=== PATIENT | male | born 1975 | race Caucasian/White ===

== ENCOUNTER → 2018-05-19 16:28 | Outpatient (CLI) | payer OTHER, SELFPAY ==
--- NOTE | 2018-05-19 16:30 | DI.RAD.S_ITS ---
PROCEDURE: XR SHOULDER RT MIN 2V INDICATIONS: right shoulder pain TECHNIQUE: 3 views of the shoulder were acquired. COMPARISON: None. FINDINGS: Bones: No fractures or dislocations. No suspicious bony lesions. Visualized ribs appear intact. Soft tissues: No suspicious soft tissue calcifications. The visualized lung demonstrates an unremarkable appearance. IMPRESSION: Negative plain films. If there is strong clinical suspicion for internal derangement of this joint, please consider a dedicated MRI for further evaluation (assuming that there is no contraindication to MRI). Dictated by: Zander Oh M.D. on 05/19/2018 at 15:46 Approved by: Zander Oh M.D. on 05/19/2018 at 15:46
== END ==
PROVIDERS: Visit Provider Physician Assistant
DX: M25.511 Pain in right shoulder (principal)
CPT/HCPCS: 73030

== ENCOUNTER → 2018-05-26 07:39 | Outpatient (CLI) | payer OTHER, SELFPAY ==
--- NOTE | 2018-05-26 07:40 | DI.MRI.S_ITS ---
PROCEDURE: MR SHOULDER RT WO CON INDICATIONS: R shoulder pain TECHNIQUE: Noncontrast oblique coronal T2 fast spin echo with fat saturation, oblique sagittal T1 spin echo and T2 fast spin echo with fat saturation, axial T1 spin echo and T2 fast spin echo with fat saturation through the shoulder. COMPARISON: [facility], CR, XR SHOULDER RT MIN 2V, 05/19/2018, 16:30. FINDINGS: Image quality: Severely motion degraded Rotator cuff: Full-thickness tear of the supraspinatus tendon is seen, not well imaged due to motion degradation of the study however this measures approximately 1.9 cm in the transverse/longitudinal dimension on coronal image 11 series 8. Infraspinatus tendinopathy is likely present although also not well-seen due to motion artifact. The teres minor appears grossly intact. Subscapularis tendinopathy with bursal and articular surface fraying. Fatty infiltration of the supraspinatus and infraspinatus muscles although no definite atrophy is seen. Bones and bursae: No bone marrow contusions or fractures. Moderate acromioclavicular joint degeneration. The acromion demonstrates conventional anatomy, without an os acromiale. Capsule and soft tissues: Labrum not well visualized due to motion artifact however there is predominantly low signal hypertrophic appearance of the anteroinferior labrum raising possibility of chronic tear with scarring. The long head of the biceps tendon demonstrates normal location and morphology. The rotator interval appears normal, without fibrosis. The coracohumeral ligament is normal in thickness. IMPRESSION: Full-thickness tear of the supraspinatus tendon. Infraspinatus and subscapularis tendinopathy. Low-grade bursal and articular surface fraying of the subscapularis tendon. Probable chronic anteroinferior labral tear with scarring/hypertrophy. Dictated by: Rene Crane M.D. on 05/26/2018 at 9:57 Approved by: Rene Crane M.D. on 05/26/2018 at 10:09
== END ==
PROVIDERS: Visit Provider Physician Assistant
DX: M25.511 Pain in right shoulder (principal); G89.29 Other chronic pain; M75.121 Complete rotator cuff tear or rupture of right shoulder, not specified as traumatic; M67.911 Unspecified disorder of synovium and tendon, right shoulder
CPT/HCPCS: 73221

== ENCOUNTER 2018-08-20 15:15 | Outpatient (RCR) | payer OTHER, SELFPAY ==
--- NOTE | 2018-07-16 17:30 | PT.OPPOC ---
Current Diagnoses Complete rotator cuff tear or rupture of right shoulder, not specified as traumatic (07/16/18) Provider Visit Care Team Role Provider Type Walter Laboy MD Primary Care Provider Physician Specialty: Internal Medicine Address: [address] [place] [address], [address] Email: Benny Beth MD Attending Provider Physician Specialty: Orthopedic Surgery Address: [address] [place] [address], [id number] Email: [email or web address] Plan Of Care PT-OP-T Assessment and Plan Start: 07/16/18 17:18 Freq: Status: Active Protocol: Document 07/16/18 17:21 EA (Rec: 07/16/18 17:37 EA [id number]) Physical Therapy Assessment Rehab Potential Rehabilitation Potential Good Evaluation Complexity Number of Personal Factors/Comorbidities 1-2 Number of Body Systems Impaired 1-2 Clinical Presentation at Evaluation Stable Impairments Impairments Activity Tolerance Functional Activities Pain Posture ROM Soft Tissue Mobility Strength Goals Four Impairment Impaired shoulder ROM Intermediate Goal (LTG) Patient will reach functional ROM without discomfort LTG Duration 6 wks Three Impairment Apley's functional test: Unable Director Of Reservations Goal (LTG) Apleys ER/ABD C7 Appleys IR/ADD T9 LTG Duration 7 wks Two Impairment Quick Dash score of 56 Director Of Reservations Goal (LTG) Patient will have Quick Dash score of les tna 30 LTG Duration 5 wks One Impairment NO HEP in place Director Of Reservations Goal (LTG) Indep in HEP and will comply to recommended pre-cautions LTG Duration 3 wk Assessment Summary Assessment Pleasant 42 y/o M patient who is s/p right rotator cuff arthroscopic repair and anterior acromioplasty 06/24/18 . Today patient presents shoulder healing according to expectation with no signs of secondary healing. Upon palpation he demonstrates moderate muscle guarding and mild tenderness to anterior and posterior shoulder. Shoulder MMT not performed due to pre-cautions. Scapular strength shows at least 3+/5. Elbow and hand function shows at least WFL including ROM. Shoulder AROM is limited to restricted range of 0-45 deg ER, today it reveals 10 deg active ER and flexion by 10 deg. In my professional opinion, pt would benefit with skilled PT with aims of increasing shoulder ROM, decreasing pain and guarding, and strength improvement in accordance to post surgery protocol. Physical Therapy Plan Frequency and Duration Frequency of Treatment 1x/Week Duration of Treatment 8 wks Plan of Care Start Date 07/16/18 Plan of Care End Date 09/10/18 Therapeutic Interventions Therapeutic Interventions Home Exercise Program Joint Mobilizations Manual Therapy Patient/Caregiver Education Self-Care/Home Management Soft Tissue Mobilization Taping Therapeutic Activities Therapeutic Exercises Modalities Cold Pack/Ice Massage Electric Stimulation Hot Packs Ultrasound Next Visit Focus/Plan Next Note Type Treatment Note Next Visit Plan Review HEP, PROM to shoulder according to protocol, Elbow to hand AROM to strengthening. Modalities to right shoulder for pain and guarding. Plan of Care Dates Plan of Care Start Date 07/16/18 Plan of Care End Date 09/10/18 Please Sign and Return: I have reviewed this Plan of Care and certify that the skilled therapy services above are required to meet the patient?s needs. Physician Signature Date Printed Name and Credentials Clinical Instructor Signature Printed Name and Credentials
--- NOTE | 2018-07-16 17:30 | PT.OIE ---
Current Diagnoses Complete rotator cuff tear or rupture of right shoulder, not specified as traumatic (07/16/18) Past Medical History (Last Updated 06/21/18 @ 21:51 by Arlene Devries) Acne (Chronic ~1989) Shoulder pain (Chronic ~2017) Chicken pox (Resolved ~1979) Herpes (Resolved ~2015) Past Surgical History (Last Updated 06/21/18 @ 21:51 by Arlene Devries) Anesthesia (Resolved) History of hand surgery (Resolved ~1986) [place] teeth removed (Resolved ~1993) Provider Visit Care Team Role Provider Type Walter Laboy MD Primary Care Provider Physician Specialty: Internal Medicine Address: [address] [place] [address], [address] Email: Benny Beth MD Attending Provider Physician Specialty: Orthopedic Surgery Address: [address] [place] [address], [address] Email: [email or web address] Physical Therapy Initial Evaluation PT-OP-A Visit Information Start: 07/16/18 17:18 Freq: Status: Active Protocol: Document 07/16/18 17:21 EA (Rec: 07/16/18 17:37 EA [id number]) Out-Patient Physical Therapy Visit Information Visit Information Visit Type Initial Evaluation Visit Start Time 15:15 Visit Stop Time 15:50 Total Visit Minutes 35 Visit Number 1 Number of CUFF STITCHER Visits 0 Evaluation Information Evaluation Date 07/16/18 Precautions Precautions Follow rotator cuff repair protocol No active shoulder movement for 6 wks (06/24/2018 - 2018) PT-OP-B Current Condition Start: 07/16/18 17:18 Freq: Status: Active Protocol: Document 07/16/18 17:21 EA (Rec: 07/16/18 17:37 EA [id number]) Current Condition History of Current Condition Onset Date s/p right rotator cuff repair (supraspinatus) 06/24/18 Current Complaints right shoulder pain and stiffness History of Current Condition Patient is s/p right RTC repair 06/24/18 due to sports injury last September/2017. 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 He reports sometimes in January/2018 where he re-injured it again. MRI reports full tear of supraspinatus prior to surgery . 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 Current Functional Impairments (Reported) Functional Limitations- ADL's Indep with restriction to right shoulder functional mobility Functional Limitations- Mobility/Gait indep Functional Limitations- Work/School Unable to work due to shoulder restriction Functional Limitations- Recreation/ Unable to participate in a [employer] fire volunteer work due to right shoulder restriction PT-OP-C Subjective Start: 07/16/18 17:18 Freq: Status: Active Protocol: Document 07/16/18 17:21 EA (Rec: 07/16/18 17:37 EA [id number]) OP-PT Subjective Patient Comments Patient Comments Patient states I'm worried that my copay may limit my visit. Patient Reported Progress Improving Patient Questionnaires Quick Dash- Upper Extremity Quick Dash UE Score 56 Quick Dash UE Impairment 40 to 59% Impaired (Score 40- 59) OP-PT Pain Assessment Location Right Shoulder Pain Location Details Right shoulder Intensity 2 Scale Used Numeric (1 - 10) Description Tender Tightness Frequency Intermittent Pain Aggravating Factors Activity Exercise Lifting Pain Alleviating Factors Cold Medication PT-OP-E Functional Tests Start: 07/16/18 17:18 Freq: Status: Active Protocol: Document 07/16/18 17:21 EA (Rec: 07/16/18 17:37 EA [id number]) Functional Tests Mayaey's Scratch Test Action 1: The subject is instructed to touch the opposite shoulder with his/her hand. This motion checks Glenohumeral adduction, internal rotation , horizontal adduction and scapular protraction Action 2: The subject is instructed to place his/her arm overhead and reach behind the neck to touch his/her upper back. This motion checks Glenohumeral abduction, external rotation and scapular upward rotation and elevation. Action 3: The subject puts his/her hand on the lower back and reaches upward as far as possible. This motion checks glenohumeral adduction, internal rotation and scapular retraction with downward rotation Action 1- Left opposite shoulder Action 1- Right restricted Action 2- Left T2 Action 2- Right Restricted Action 3- Left T9 Action 3- Right Buttoks PT-OP-J Posture/Palpation/Skin Start: 07/16/18 17:18 Freq: Status: Active Protocol: Document 07/16/18 17:21 EA (Rec: 07/16/18 17:37 EA [id number]) Posture Evaluation Position Standing Evaluation View post/lat Head/C-Spine Posture C-Spine Flattened Forward Head Shoulder Posture (L) Rounded (R) Rounded (R) Elevated Comments Posture Comments Slight forward head, rounded shoulder with depressed shoulders Palpation Assessment Location One Palpation Location anterior and postshoulder Palpation Findings Muscle Guarding Tenderness PT-OP-K Range of Motion Start: 07/16/18 17:18 Freq: Status: Active Protocol: Document 07/16/18 17:20 EA (Rec: 07/17/18 12:52 EA [id number]) Shoulder Goniometric Range of Motion Shoulder Measured in Degrees Right Testing Position Standing Flexion 30 Extension 25 Abduction 30 Left Active Shoulder ROM WFL Yes Shoulder ROM Limitations Shoulder ROM Limitations Muscle Weakness Pain Comments shoulder post surgery restrictions Elbow/Forearm Range of Motion Elbow/Forearm Measured in Degrees Right Active Elbow/Forearm ROM WFL Yes PT-OP-M Strength Start: 07/16/18 17:18 Freq: Status: Active Protocol: Document 07/16/18 17:20 EA (Rec: 07/17/18 12:52 EA [id number]) Shoulder Strength Shoulder Manual Muscle Testing Right Reason Not Measured Orthopedic Precautions Left Reason Not Measured WFL Elbow/Forearm Strength Elbow and Forearm Manual Muscle Testing Left Reason Not Measured WFL Right Flexion (C6) 4- Good- Extension (C7) 4- Good- Pronation 4- Good- Supination 4- Good- Comments No properly tested due to pre- cautions PT-OP-Q Treatments Start: 07/16/18 17:18 Freq: Status: Active Protocol: Document 07/16/18 17:20 EA (Rec: 07/17/18 12:56 EA [id number]) Therapeutic Exercises Supine Exercises 3 Supine Exercise Name Wand shoulder ER from neutral to 45 deg 2 Supine Exercise Name wand shoulder press Side bilateral Reps/Minutes x 10 reps 1 Supine Exercise Name 0-90 wand flexion Side bilateral Reps/Minutes x 10 reps Sitting Exercises 2 Sitting Exercise Name shrugs Side bilateral Reps/Minutes x 15 reps x 2 sets Standing Exercises 1 Standing Exercise Name Elbow flexion/EXT, wrist Flex/ ext Side right Reps/Minutes x 15 reps x 2 Self-Care/Home Management Treatment Education Patient Education Home Exercise Program Joint Protection Pain Management Posture PT-OP-T Assessment and Plan Start: 07/16/18 17:18 Freq: Status: Active Protocol: Document 07/16/18 17:21 EA (Rec: 07/16/18 17:37 EA [id number]) Physical Therapy Assessment Rehab Potential Rehabilitation Potential Good Evaluation Complexity Number of Personal Factors/Comorbidities 1-2 Number of Body Systems Impaired 1-2 Clinical Presentation at Evaluation Stable Impairments Impairments Activity Tolerance Functional Activities Pain Posture ROM Soft Tissue Mobility Strength Goals Four Impairment Impaired shoulder ROM Cable Cutter And Swager Goal (LTG) Patient will reach functional ROM without discomfort LTG Duration 6 wks Three Impairment Apley's functional test: Unable Cable Cutter And Swager Goal (LTG) Apleys ER/ABD C7 Appleys IR/ADD T9 LTG Duration 7 wks Two Impairment Quick Dash score of 56 Longterm Goal (LTG) Patient will have Quick Dash score of les tna 30 LTG Duration 5 wks One Impairment NO HEP in place Cable Cutter And Swager Goal (LTG) Indep in HEP and will comply to recommended pre-cautions LTG Duration 3 wk Assessment Summary Assessment Pleasant 42 y/o M patient who is s/p right rotator cuff arthroscopic repair and anterior acromioplasty 06/24/18 . Today patient presents shoulder healing according to expectation with no signs of secondary healing. Upon palpation he demonstrates moderate muscle guarding and mild tenderness to anterior and posterior shoulder. Shoulder MMT not performed due to pre-cautions. Scapular strength shows at least 3+/5. Elbow and hand function shows at least WFL including ROM. Shoulder AROM is limited to restricted range of 0-45 deg ER, today it reveals 10 deg active ER and flexion by 10 deg. In my professional opinion, pt would benefit with skilled PT with aims of increasing shoulder ROM, decreasing pain and guarding, and strength improvement in accordance to post surgery protocol. Physical Therapy Plan Frequency and Duration Frequency of Treatment 1x/Week Duration of Treatment 8 wks Plan of Care Start Date 07/16/18 Plan of Care End Date 09/10/18 Therapeutic Interventions Therapeutic Interventions Home Exercise Program Joint Mobilizations Manual Therapy Patient/Caregiver Education Self-Care/Home Management Soft Tissue Mobilization Taping Therapeutic Activities Therapeutic Exercises Modalities Cold Pack/Ice Massage Electric Stimulation Hot Packs Ultrasound Next Visit Focus/Plan Next Note Type Treatment Note Next Visit Plan Review HEP, PROM to shoulder according to protocol, Elbow to hand AROM to strengthening. Modalities to right shoulder for pain and guarding.
--- NOTE | 2018-07-23 12:21 | PT.OTN ---
Current Diagnoses Complete rotator cuff tear or rupture of right shoulder, not specified as traumatic (07/23/18) Physical Therapy Treatment Note PT-OP-A Visit Information Start: 07/16/18 17:18 Freq: Status: Active Protocol: Document 07/23/18 10:30 GGD (Rec: 07/23/18 12:21 GGD [email or web address]) Out-Patient Physical Therapy Visit Information Visit Information Visit Type Treatment Note Visit Start Time 10:30 Visit Stop Time 11:20 Total Visit Minutes 50 Visit Number 2 Number of RE ETCHER Visits 1 PT-OP-B Current Condition Start: 07/16/18 17:18 Freq: Status: Active Protocol: Document 07/16/18 17:21 EA (Rec: 07/16/18 17:37 EA [id number]) Current Condition History of Current Condition Onset Date s/p right rotator cuff repair (supraspinatus) 06/24/18 Current Complaints right shoulder pain and stiffness History of Current Condition Patient is s/p right RTC repair 06/24/18 due to sports injury last September/2017. 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 He reports sometimes in January/2018 where he re-injured it again. MRI reports full tear of supraspinatus prior to surgery . 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 Current Functional Impairments (Reported) Functional Limitations- ADL's Indep with restriction to right shoulder functional mobility Functional Limitations- Mobility/Gait indep Functional Limitations- Work/School Unable to work due to shoulder restriction Functional Limitations- Recreation/ Unable to participate in a Hobbies fire volunteer work due to right shoulder restriction PT-OP-C Subjective Start: 07/16/18 17:18 Freq: Status: Active Protocol: Document 07/23/18 10:30 GGD (Rec: 07/23/18 12:21 GGD [email or web address]) OP-PT Subjective Patient Comments Patient Comments Pt states that he has been sore after doing HEP. PT-OP-E Functional Tests Start: 07/16/18 17:18 Freq: Status: Active Protocol: Document 07/16/18 17:21 EA (Rec: 07/16/18 17:37 EA [id number]) Functional Tests Apley's Scratch Test Action 1: The subject is instructed to touch the opposite shoulder with his/her hand. This motion checks Glenohumeral adduction, internal rotation , horizontal adduction and scapular protraction Action 2: The subject is instructed to place his/her arm overhead and reach behind the neck to touch his/her upper back. This motion checks Glenohumeral abduction, external rotation and scapular upward rotation and elevation. Action 3: The subject puts his/her hand on the lower back and reaches upward as far as possible. This motion checks glenohumeral adduction, internal rotation and scapular retraction with downward rotation Action 1- Left opposite shoulder Action 1- Right restricted Action 2- Left T2 Action 2- Right Restricted Action 3- Left T9 Action 3- Right Buttoks PT-OP-J Posture/Palpation/Skin Start: 07/16/18 17:18 Freq: Status: Active Protocol: Document 07/16/18 17:21 EA (Rec: 07/16/18 17:37 EA [id number]) Posture Evaluation Position Standing Evaluation View post/lat Head/C-Spine Posture C-Spine Flattened Forward Head Shoulder Posture (L) Rounded (R) Rounded (R) Elevated Comments Posture Comments Slight forward head, rounded shoulder with depressed shoulders Palpation Assessment Location One Palpation Location anterior and postshoulder Palpation Findings Muscle Guarding Tenderness PT-OP-K Range of Motion Start: 07/16/18 17:18 Freq: Status: Active Protocol: Document 07/16/18 17:20 EA (Rec: 07/17/18 12:52 EA [id number]) Shoulder Goniometric Range of Motion Shoulder Measured in Degrees Right Testing Position Standing Flexion 30 Extension 25 Abduction 30 Left Active Shoulder ROM WFL Yes Shoulder ROM Limitations Shoulder ROM Limitations Muscle Weakness Pain Comments shoulder post surgery restrictions Elbow/Forearm Range of Motion Elbow/Forearm Measured in Degrees Right Active Elbow/Forearm ROM WFL Yes PT-OP-M Strength Start: 07/16/18 17:18 Freq: Status: Active Protocol: Document 07/16/18 17:20 EA (Rec: 07/17/18 12:52 EA [id number]) Shoulder Strength Shoulder Manual Muscle Testing Right Reason Not Measured Orthopedic Precautions Left Reason Not Measured WFL Elbow/Forearm Strength Elbow and Forearm Manual Muscle Testing Left Reason Not Measured WFL Right Flexion (C6) 4- Good- Extension (C7) 4- Good- Pronation 4- Good- Supination 4- Good- Comments No properly tested due to pre- cautions PT-OP-Q Treatments Start: 07/16/18 17:18 Freq: Status: Active Protocol: Document 07/23/18 10:30 GGD (Rec: 07/23/18 12:21 GGD [email or web address]) Therapeutic Exercises Supine Exercises wand abduction Supine Exercise Name wand shoulder abduction Side right Reps/Minutes 10 3 Supine Exercise Name Wand shoulder ER from neutral to 45 deg Side right Reps/Minutes 10 2 Supine Exercise Name wand shoulder press Side bilateral Reps/Minutes x 10 reps 1 Supine Exercise Name 0-90 wand flexion Side bilateral Reps/Minutes x 10 reps Sitting Exercises scap squeezes Sitting Exercise Name scap squeezes Side bilateral Reps/Minutes 10 x 5 secs 2 Sitting Exercise Name shrugs Side bilateral Reps/Minutes x 15 reps x 2 sets Manual Therapy Treatment Soft Tissue Mobilization 1 Body Location right ut, pec Mobilization Type Myofascial Release Intensity/Depth Superficial Body Position Hooklying Manual Techniques PROM Type Shoulder PROM Body Location right Body Position Hooklying Reps/Duration 15 PT-OP-R Modalities Start: 07/16/18 17:18 Freq: Status: Active Protocol: Document 07/23/18 10:30 GGD (Rec: 07/23/18 12:21 GGD [email or web address]) Hot Pack/Cold Pack Treatment Cold Pack Location right shoulder Patient Position Hooklying Treatment Duration (minutes) 10 Patient Tolerance Good PT-OP-T Assessment and Plan Start: 07/16/18 17:18 Freq: Status: Active Protocol: Document 07/23/18 10:30 GGD (Rec: 07/23/18 12:21 GGD [id number]) Physical Therapy Assessment Assessment Summary Assessment Pt progressing with shoulder PROM flexion. He is limited in ER and abduction. He need cues for exercise technique. Physical Therapy Plan Frequency and Duration Frequency of Treatment 1x/Week Duration of Treatment 8 wks Plan of Care Start Date 07/16/18 Plan of Care End Date 09/10/18 Next Visit Focus/Plan Next Note Type Treatment Note Next Visit Plan Review HEP, PROM to shoulder according to protocol, Elbow to hand AROM to strengthening.
--- NOTE | 2018-07-30 12:49 | PT.OTN ---
Current Diagnoses Complete rotator cuff tear or rupture of right shoulder, not specified as traumatic (07/30/18) Physical Therapy Treatment Note PT-OP-A Visit Information Start: 07/16/18 17:18 Freq: Status: Active Protocol: Document 07/30/18 12:42 SA (Rec: 07/30/18 12:49 SA [email or web address]) Out-Patient Physical Therapy Visit Information Visit Information Visit Type Treatment Note Visit Start Time 10:30 Visit Stop Time 11:18 Total Visit Minutes 48 Visit Number 3 Number of BAGGAGE CLERK Visits 2 PT-OP-B Current Condition Start: 07/16/18 17:18 Freq: Status: Active Protocol: Document 07/16/18 17:21 EA (Rec: 07/16/18 17:37 EA [id number]) Current Condition History of Current Condition Onset Date s/p right rotator cuff repair (supraspinatus) 06/24/18 Current Complaints right shoulder pain and stiffness History of Current Condition Patient is s/p right RTC repair 06/24/18 due to sports injury last September/2017. 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 He reports sometimes in January/2018 where he re-injured it again. MRI reports full tear of supraspinatus prior to surgery . 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 Current Functional Impairments (Reported) Functional Limitations- ADL's Indep with restriction to right shoulder functional mobility Functional Limitations- Mobility/Gait indep Functional Limitations- Work/School Unable to work due to shoulder restriction Functional Limitations- Recreation/ Unable to participate in a Hobbies fire volunteer work due to right shoulder restriction PT-OP-C Subjective Start: 07/16/18 17:18 Freq: Status: Active Protocol: Document 07/30/18 12:42 SA (Rec: 07/30/18 12:49 SA [email or web address]) OP-PT Subjective Patient Comments Patient Comments Pt reports feeling pretty good today, tolerating HEP better and noted improving ROM. PT-OP-E Functional Tests Start: 07/16/18 17:18 Freq: Status: Active Protocol: Document 07/16/18 17:21 EA (Rec: 07/16/18 17:37 EA [id number]) Functional Tests Apley's Scratch Test Action 1: The subject is instructed to touch the opposite shoulder with his/her hand. This motion checks Glenohumeral adduction, internal rotation , horizontal adduction and scapular protraction Action 2: The subject is instructed to place his/her arm overhead and reach behind the neck to touch his/her upper back. This motion checks Glenohumeral abduction, external rotation and scapular upward rotation and elevation. Action 3: The subject puts his/her hand on the lower back and reaches upward as far as possible. This motion checks glenohumeral adduction, internal rotation and scapular retraction with downward rotation Action 1- Left opposite shoulder Action 1- Right restricted Action 2- Left T2 Action 2- Right Restricted Action 3- Left T9 Action 3- Right Buttoks PT-OP-J Posture/Palpation/Skin Start: 07/16/18 17:18 Freq: Status: Active Protocol: Document 07/16/18 17:21 EA (Rec: 07/16/18 17:37 EA [id number]) Posture Evaluation Position Standing Evaluation View post/lat Head/C-Spine Posture C-Spine Flattened Forward Head Shoulder Posture (L) Rounded (R) Rounded (R) Elevated Comments Posture Comments Slight forward head, rounded shoulder with depressed shoulders Palpation Assessment Location One Palpation Location anterior and postshoulder Palpation Findings Muscle Guarding Tenderness PT-OP-K Range of Motion Start: 07/16/18 17:18 Freq: Status: Active Protocol: Document 07/16/18 17:20 EA (Rec: 07/17/18 12:52 EA [id number]) Shoulder Goniometric Range of Motion Shoulder Measured in Degrees Right Testing Position Standing Flexion 30 Extension 25 Abduction 30 Left Active Shoulder ROM WFL Yes Shoulder ROM Limitations Shoulder ROM Limitations Muscle Weakness Pain Comments shoulder post surgery restrictions Elbow/Forearm Range of Motion Elbow/Forearm Measured in Degrees Right Active Elbow/Forearm ROM WFL Yes PT-OP-M Strength Start: 07/16/18 17:18 Freq: Status: Active Protocol: Document 07/16/18 17:20 EA (Rec: 07/17/18 12:52 EA [id number]) Shoulder Strength Shoulder Manual Muscle Testing Right Reason Not Measured Orthopedic Precautions Left Reason Not Measured WFL Elbow/Forearm Strength Elbow and Forearm Manual Muscle Testing Left Reason Not Measured WFL Right Flexion (C6) 4- Good- Extension (C7) 4- Good- Pronation 4- Good- Supination 4- Good- Comments No properly tested due to pre- cautions PT-OP-Q Treatments Start: 07/16/18 17:18 Freq: Status: Active Protocol: Document 07/30/18 12:42 SA (Rec: 07/30/18 12:49 SA [email or web address]) Therapeutic Exercises Supine Exercises wand abduction Supine Exercise Name wand shoulder abduction Side right Reps/Minutes 15x 3 Supine Exercise Name Wand shoulder ER from neutral to 45 deg Side right Reps/Minutes 15x 2 Supine Exercise Name wand shoulder press Side bilateral Reps/Minutes 15x 1 Supine Exercise Name 0-90 wand flexion Side bilateral Reps/Minutes 15x Sitting Exercises Pulleys Flexion/scaption Side right Reps/Minutes 3 min scap squeezes Sitting Exercise Name scap squeezes Side bilateral Reps/Minutes 10 x 5 secs 2 Sitting Exercise Name shrugs Side bilateral Reps/Minutes x 15 reps x 2 sets Manual Therapy Treatment Soft Tissue Mobilization 1 Body Location right ut, pec Mobilization Type Myofascial Release Intensity/Depth Moderate Body Position Hooklying Manual Techniques PROM Type Shoulder PROM Body Location right Body Position Hooklying Reps/Duration 15 PT-OP-R Modalities Start: 07/16/18 17:18 Freq: Status: Active Protocol: Document 07/30/18 12:42 SA (Rec: 07/30/18 12:49 [email or web address]) Hot Pack/Cold Pack Treatment Cold Pack Location right shoulder Patient Position Hooklying Treatment Duration (minutes) 10 Patient Tolerance Good PT-OP-T Assessment and Plan Start: 07/16/18 17:18 Freq: Status: Active Protocol: Document 07/30/18 12:42 SA (Rec: 07/30/18 12:49 [email or web address]) Physical Therapy Assessment Assessment Summary Assessment Pt progressing well with shoulder PROM for flexion and abduction, still quite tight with IR/ER. R UT in spasm, responded well to STM. Physical Therapy Plan Next Visit Focus/Plan Next Note Type Treatment Note Next Visit Plan Review HEP, PROM to shoulder according to protocol, Elbow to hand AROM to strengthening.
--- NOTE | 2018-08-06 10:30 | PT.OTN ---
Current Diagnoses Complete rotator cuff tear or rupture of right shoulder, not specified as traumatic (08/06/18) Physical Therapy Treatment Note PT-OP-A Visit Information Start: 07/16/18 17:18 Freq: Status: Active Protocol: Document 08/06/18 10:30 RCC (Rec: 08/06/18 13:12 RCC [email or web address]) Out-Patient Physical Therapy Visit Information Visit Information Visit Type Treatment Note Visit Start Time 10:30 Visit Stop Time 11:15 Total Visit Minutes 45 Visit Number 4 Number of TELEPHONE REPAIRER Visits 0 Evaluation Information Evaluation Date 07/16/18 Precautions Precautions Follow rotator cuff repair protocol No active shoulder movement for 6 wks (06/24/2018 - 2018) PT-OP-B Current Condition Start: 07/16/18 17:18 Freq: Status: Active Protocol: Document 07/16/18 17:21 EA (Rec: 07/16/18 17:37 EA [id number]) Current Condition History of Current Condition Onset Date s/p right rotator cuff repair (supraspinatus) 06/24/18 Current Complaints right shoulder pain and stiffness History of Current Condition Patient is s/p right RTC repair 06/24/18 due to sports injury last September/2017. 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 He reports sometimes in January/2018 where he re-injured it again. MRI reports full tear of supraspinatus prior to surgery . 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 Current Functional Impairments (Reported) Functional Limitations- ADL's Indep with restriction to right shoulder functional mobility Functional Limitations- Mobility/Gait indep Functional Limitations- Work/School Unable to work due to shoulder restriction Functional Limitations- Recreation/ Unable to participate in a Hobbies fire volunteer work due to right shoulder restriction PT-OP-C Subjective Start: 07/16/18 17:18 Freq: Status: Active Protocol: Document 08/06/18 10:30 RCC (Rec: 08/06/18 13:12 RCC [email or web address]) OP-PT Subjective Patient Comments Patient Comments Pt states that he is noticing good changes with less pain in his shoulder this week. He is still doing his HEP and abiding by precautions. PT-OP-E Functional Tests Start: 07/16/18 17:18 Freq: Status: Active Protocol: Document 07/16/18 17:21 EA (Rec: 07/16/18 17:37 EA [id number]) Functional Tests Apley's Scratch Test Action 1: The subject is instructed to touch the opposite shoulder with his/her hand. This motion checks Glenohumeral adduction, internal rotation , horizontal adduction and scapular protraction Action 2: The subject is instructed to place his/her arm overhead and reach behind the neck to touch his/her upper back. This motion checks Glenohumeral abduction, external rotation and scapular upward rotation and elevation. Action 3: The subject puts his/her hand on the lower back and reaches upward as far as possible. This motion checks glenohumeral adduction, internal rotation and scapular retraction with downward rotation Action 1- Left opposite shoulder Action 1- Right restricted Action 2- Left T2 Action 2- Right Restricted Action 3- Left T9 Action 3- Right Buttoks PT-OP-J Posture/Palpation/Skin Start: 07/16/18 17:18 Freq: Status: Active Protocol: Document 07/16/18 17:21 EA (Rec: 07/16/18 17:37 EA [id number]) Posture Evaluation Position Standing Evaluation View post/lat Head/C-Spine Posture C-Spine Flattened Forward Head Shoulder Posture (L) Rounded (R) Rounded (R) Elevated Comments Posture Comments Slight forward head, rounded shoulder with depressed shoulders Palpation Assessment Location One Palpation Location anterior and postshoulder Palpation Findings Muscle Guarding Tenderness PT-OP-K Range of Motion Start: 07/16/18 17:18 Freq: Status: Active Protocol: Document 07/16/18 17:20 EA (Rec: 07/17/18 12:52 EA [id number]) Shoulder Goniometric Range of Motion Shoulder Measured in Degrees Right Testing Position Standing Flexion 30 Extension 25 Abduction 30 Left Active Shoulder ROM WFL Yes Shoulder ROM Limitations Shoulder ROM Limitations Muscle Weakness Pain Comments shoulder post surgery restrictions Elbow/Forearm Range of Motion Elbow/Forearm Measured in Degrees Right Active Elbow/Forearm ROM WFL Yes PT-OP-M Strength Start: 07/16/18 17:18 Freq: Status: Active Protocol: Document 07/16/18 17:20 EA (Rec: 07/17/18 12:52 EA [id number]) Shoulder Strength Shoulder Manual Muscle Testing Right Reason Not Measured Orthopedic Precautions Left Reason Not Measured WFL Elbow/Forearm Strength Elbow and Forearm Manual Muscle Testing Left Reason Not Measured WFL Right Flexion (C6) 4- Good- Extension (C7) 4- Good- Pronation 4- Good- Supination 4- Good- Comments No properly tested due to pre- cautions PT-OP-Q Treatments Start: 07/16/18 17:18 Freq: Status: Active Protocol: Document 08/06/18 10:30 RCC (Rec: 08/06/18 13:12 RCC [email or web address]) Therapeutic Exercises Sitting Exercises Pulleys Flexion/scaption Sitting Exercise Name flexion and scaption Side right Reps/Minutes 6 min Standing Exercises Pulleys- IR Side right Reps/Minutes 4 min Comments gentle Manual Therapy Treatment Soft Tissue Mobilization 1 Body Location right ut, pec, teres and infraspinatus Mobilization Type Myofascial Release Intensity/Depth Moderate Body Position Sitting Manual Techniques PROM Type Shoulder PROM Body Location right Body Position Supine Reps/Duration 15 min Comments flexion, abd, ER, IR, horiz. add/abduction PT-OP-R Modalities Start: 07/16/18 17:18 Freq: Status: Active Protocol: Document 08/06/18 10:30 RCC (Rec: 08/06/18 13:12 RCC [email or web address]) Hot Pack/Cold Pack Treatment Cold Pack Location right shoulder Patient Position Hooklying Treatment Duration (minutes) 10 Patient Tolerance Good PT-OP-T Assessment and Plan Start: 07/16/18 17:18 Freq: Status: Active Protocol: Document 08/06/18 10:30 RCC (Rec: 08/06/18 13:12 RCC [email or web address]) Physical Therapy Assessment Assessment Summary Assessment Pt with improved horizontal adduction of the R shoulder after manual therapy today. Pt presented with tension in teres and infraspinatus today, likely due to reaction of injury and surgical repair. He is able to IR to S1. Physical Therapy Plan Frequency and Duration Frequency of Treatment 1x/Week Duration of Treatment 8 wks Plan of Care Start Date 07/16/18 Plan of Care End Date 09/10/18 Next Visit Focus/Plan Next Note Type Treatment Note Next Visit Plan cont. to advance PROM, strengthening once @ wk 8 s/p surgical repair
--- NOTE | 2018-08-13 10:33 | PT.OTN ---
Current Diagnoses Complete rotator cuff tear or rupture of right shoulder, not specified as traumatic (08/13/18) Physical Therapy Treatment Note PT-OP-A Visit Information Start: 07/16/18 17:18 Freq: Status: Active Protocol: Document 08/13/18 10:33 RCC (Rec: 08/13/18 13:20 RCC [email or web address]) Out-Patient Physical Therapy Visit Information Visit Information Visit Type Treatment Note Visit Start Time 10:33 Visit Stop Time 11:16 Total Visit Minutes 43 Visit Number 5 Number of MANUFACTURING ADVISOR Visits 0 Evaluation Information Evaluation Date 07/16/18 Precautions Precautions Follow rotator cuff repair protocol No active shoulder movement for 6 wks (06/24/2018 - 2018) PT-OP-B Current Condition Start: 07/16/18 17:18 Freq: Status: Active Protocol: Document 07/16/18 17:21 EA (Rec: 07/16/18 17:37 EA [id number]) Current Condition History of Current Condition Onset Date s/p right rotator cuff repair (supraspinatus) 06/24/18 Current Complaints right shoulder pain and stiffness History of Current Condition Patient is s/p right RTC repair 06/24/18 due to sports injury last September/2017. 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 He reports sometimes in January/2018 where he re-injured it again. MRI reports full tear of supraspinatus prior to surgery . 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 Current Functional Impairments (Reported) Functional Limitations- ADL's Indep with restriction to right shoulder functional mobility Functional Limitations- Mobility/Gait indep Functional Limitations- Work/School Unable to work due to shoulder restriction Functional Limitations- Recreation/ Unable to participate in a Hobbies fire volunteer work due to right shoulder restriction PT-OP-C Subjective Start: 07/16/18 17:18 Freq: Status: Active Protocol: Document 08/13/18 10:33 RCC (Rec: 08/13/18 13:20 RCC [email or web address]) OP-PT Subjective Patient Comments Patient Comments No new complaints, 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 Patient Reported Progress Improving PT-OP-E Functional Tests Start: 07/16/18 17:18 Freq: Status: Active Protocol: Document 07/16/18 17:21 EA (Rec: 07/16/18 17:37 EA [id number]) Functional Tests Apley's Scratch Test Action 1: The subject is instructed to touch the opposite shoulder with his/her hand. This motion checks Glenohumeral adduction, internal rotation , horizontal adduction and scapular protraction Action 2: The subject is instructed to place his/her arm overhead and reach behind the neck to touch his/her upper back. This motion checks Glenohumeral abduction, external rotation and scapular upward rotation and elevation. Action 3: The subject puts his/her hand on the lower back and reaches upward as far as possible. This motion checks glenohumeral adduction, internal rotation and scapular retraction with downward rotation Action 1- Left opposite shoulder Action 1- Right restricted Action 2- Left T2 Action 2- Right Restricted Action 3- Left T9 Action 3- Right Buttoks PT-OP-J Posture/Palpation/Skin Start: 07/16/18 17:18 Freq: Status: Active Protocol: Document 07/16/18 17:21 EA (Rec: 07/16/18 17:37 EA [id number]) Posture Evaluation Position Standing Evaluation View post/lat Head/C-Spine Posture C-Spine Flattened Forward Head Shoulder Posture (L) Rounded (R) Rounded (R) Elevated Comments Posture Comments Slight forward head, rounded shoulder with depressed shoulders Palpation Assessment Location One Palpation Location anterior and postshoulder Palpation Findings Muscle Guarding Tenderness PT-OP-K Range of Motion Start: 07/16/18 17:18 Freq: Status: Active Protocol: Document 07/16/18 17:20 EA (Rec: 07/17/18 12:52 EA [id number]) Shoulder Goniometric Range of Motion Shoulder Measured in Degrees Right Testing Position Standing Flexion 30 Extension 25 Abduction 30 Left Active Shoulder ROM WFL Yes Shoulder ROM Limitations Shoulder ROM Limitations Muscle Weakness Pain Comments shoulder post surgery restrictions Elbow/Forearm Range of Motion Elbow/Forearm Measured in Degrees Right Active Elbow/Forearm ROM WFL Yes PT-OP-M Strength Start: 07/16/18 17:18 Freq: Status: Active Protocol: Document 07/16/18 17:20 EA (Rec: 07/17/18 12:52 EA [id number]) Shoulder Strength Shoulder Manual Muscle Testing Right Reason Not Measured Orthopedic Precautions Left Reason Not Measured WFL Elbow/Forearm Strength Elbow and Forearm Manual Muscle Testing Left Reason Not Measured WFL Right Flexion (C6) 4- Good- Extension (C7) 4- Good- Pronation 4- Good- Supination 4- Good- Comments No properly tested due to pre- cautions PT-OP-Q Treatments Start: 07/16/18 17:18 Freq: Status: Active Protocol: Document 08/13/18 10:33 RCC (Rec: 08/13/18 13:20 RCC [email or web address]) Therapeutic Exercises Sidelying Exercises shoulder abduction Sidelying Exercise Name AA shoulder abduction Side right Reps/Minutes x10 Comments with manual assist for scapular motion Sitting Exercises Pulleys Flexion/scaption Sitting Exercise Name flexion and scaption Side right Reps/Minutes 6 min scap squeezes Sitting Exercise Name scap squeezes Side bilateral Reps/Minutes 10 x 5 secs Standing Exercises pec door stretch Standing Exercise Name W and Y positions Side bilateral Reps/Minutes 2x30 sec each Pulleys- IR Side right Reps/Minutes 4 min Comments gentle Manual Therapy Treatment Soft Tissue Mobilization 1 Body Location right ut, pec, teres and infraspinatus Mobilization Type Myofascial Release Intensity/Depth Moderate Body Position Sitting Manual Techniques PROM Type Shoulder PROM Body Location right Body Position Supine Reps/Duration 15 min Comments flexion, abd, ER, IR, horiz. add/abduction PT-OP-R Modalities Start: 07/16/18 17:18 Freq: Status: Active Protocol: Document 08/06/18 10:30 RCC (Rec: 08/06/18 13:12 RCC [email or web address]) Hot Pack/Cold Pack Treatment Cold Pack Location right shoulder Patient Position Hooklying Treatment Duration (minutes) 10 Patient Tolerance Good PT-OP-T Assessment and Plan Start: 07/16/18 17:18 Freq: Status: Active Protocol: Document 08/13/18 10:33 RCC (Rec: 08/13/18 13:20 RCC [email or web address]) Physical Therapy Assessment Assessment Summary Assessment Pt tolerated session without c /o pain, able to achieve increased IR of the R shoulder to L3-4 with pulleys and no discomfort. Plan to progress toward isometrics and strengthening next week. Physical Therapy Plan Frequency and Duration Frequency of Treatment 1x/Week Duration of Treatment 8 wks Plan of Care Start Date 07/16/18 Plan of Care End Date 09/10/18 Next Visit Focus/Plan Next Note Type Treatment Note Next Visit Plan gentle/light strength training , cont to advance ROM
--- NOTE | 2018-08-20 15:59 | PT.OTN ---
Current Diagnoses Complete rotator cuff tear or rupture of right shoulder, not specified as traumatic (08/20/18) Physical Therapy Treatment Note PT-OP-A Visit Information Start: 07/16/18 17:18 Freq: Status: Active Protocol: Document 08/20/18 15:15 DCW (Rec: 08/20/18 15:59 DCW [id number]) Out-Patient Physical Therapy Visit Information Visit Information Visit Type Treatment Note Visit Start Time 15:15 Visit Stop Time 16:00 Total Visit Minutes 45 Visit Number 6 Number of [employer]TE[employer] Visits 0 Evaluation Information Evaluation Date 07/16/18 Precautions Precautions Per protocol, add resistance 8 weeks post-op (08/19/18) PT-OP-B Current Condition Start: 07/16/18 17:18 Freq: Status: Active Protocol: Document 07/16/18 17:21 EA (Rec: 07/16/18 17:37 EA [id number]) Current Condition History of Current Condition Onset Date s/p right rotator cuff repair (supraspinatus) 06/24/18 Current Complaints right shoulder pain and stiffness History of Current Condition Patient is s/p right RTC repair 06/24/18 due to sports injury last September/2017. 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 He reports sometimes in January/2018 where he re-injured it again. MRI reports full tear of supraspinatus prior to surgery . 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 Current Functional Impairments (Reported) Functional Limitations- ADL's Indep with restriction to right shoulder functional mobility Functional Limitations- Mobility/Gait indep Functional Limitations- Work/School Unable to work due to shoulder restriction Functional Limitations- Recreation/ Unable to participate in a Hobbies fire volunteer work due to right shoulder restriction PT-OP-C Subjective Start: 07/16/18 17:18 Freq: Status: Active Protocol: Document 08/20/18 15:15 DCW (Rec: 08/20/18 15:59 DCW [id number]) OP-PT Subjective Patient Comments Patient Comments Pt reports he has returned to work this week, is pretty sore following work today, 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 Notes tightness in his subscap. PT-OP-E Functional Tests Start: 07/16/18 17:18 Freq: Status: Active Protocol: Document 07/16/18 17:21 EA (Rec: 07/16/18 17:37 EA [id number]) Functional Tests Apley's Scratch Test Action 1: The subject is instructed to touch the opposite shoulder with his/her hand. This motion checks Glenohumeral adduction, internal rotation , horizontal adduction and scapular protraction Action 2: The subject is instructed to place his/her arm overhead and reach behind the neck to touch his/her upper back. This motion checks Glenohumeral abduction, external rotation and scapular upward rotation and elevation. Action 3: The subject puts his/her hand on the lower back and reaches upward as far as possible. This motion checks glenohumeral adduction, internal rotation and scapular retraction with downward rotation Action 1- Left opposite shoulder Action 1- Right restricted Action 2- Left T2 Action 2- Right Restricted Action 3- Left T9 Action 3- Right Buttoks PT-OP-J Posture/Palpation/Skin Start: 07/16/18 17:18 Freq: Status: Active Protocol: Document 07/16/18 17:21 EA (Rec: 07/16/18 17:37 EA [id number]) Posture Evaluation Position Standing Evaluation View post/lat Head/C-Spine Posture C-Spine Flattened Forward Head Shoulder Posture (L) Rounded (R) Rounded (R) Elevated Comments Posture Comments Slight forward head, rounded shoulder with depressed shoulders Palpation Assessment Location One Palpation Location anterior and postshoulder Palpation Findings Muscle Guarding Tenderness PT-OP-K Range of Motion Start: 07/16/18 17:18 Freq: Status: Active Protocol: Document 07/16/18 17:20 EA (Rec: 07/17/18 12:52 EA [id number]) Shoulder Goniometric Range of Motion Shoulder Measured in Degrees Right Testing Position Standing Flexion 30 Extension 25 Abduction 30 Left Active Shoulder ROM WFL Yes Shoulder ROM Limitations Shoulder ROM Limitations Muscle Weakness Pain Comments shoulder post surgery restrictions Elbow/Forearm Range of Motion Elbow/Forearm Measured in Degrees Right Active Elbow/Forearm ROM WFL Yes PT-OP-M Strength Start: 07/16/18 17:18 Freq: Status: Active Protocol: Document 07/16/18 17:20 EA (Rec: 07/17/18 12:52 EA [id number]) Shoulder Strength Shoulder Manual Muscle Testing Right Reason Not Measured Orthopedic Precautions Left Reason Not Measured WFL Elbow/Forearm Strength Elbow and Forearm Manual Muscle Testing Left Reason Not Measured WFL Right Flexion (C6) 4- Good- Extension (C7) 4- Good- Pronation 4- Good- Supination 4- Good- Comments No properly tested due to pre- cautions PT-OP-Q Treatments Start: 07/16/18 17:18 Freq: Status: Active Protocol: Document 08/20/18 15:15 DCW (Rec: 08/20/18 15:59 DCW [id number]) Therapeutic Exercises Sidelying Exercises 1 Sidelying Exercise Name Sleeper stretch Side right Sitting Exercises Pulleys Flexion/scaption Sitting Exercise Name flexion and scaption Side right Reps/Minutes 6 min Standing Exercises IR stretch Standing Exercise Name IR stretch /c towel Side right Abduction Standing Exercise Name Shoulder Abduction Side bilateral Resistance 4# Flexion Standing Exercise Name Shoulder Flexion Side bilateral Resistance 4# External Rotation Standing Exercise Name Shoulder ER Side right Resistance Lv 2 Equipment Used T-band Internal Rotation Standing Exercise Name Shoulder IR Side right Resistance Lv 3 Equipment Used T-band Pulleys- IR Side right Reps/Minutes 4 min Comments gentle Other Exercises UE resisted side-stepping Other Exercise Name UE resisted side-stepping Resistance Green Equipment Used T-band Manual Therapy Treatment Soft Tissue Mobilization 1 Body Location right ut, pec, teres and infraspinatus Mobilization Type Myofascial Release Intensity/Depth Moderate Body Position Sitting Joint Mobilizations GH Joint GH joint Direction inferior Grade III Body Position Sitting PT-OP-R Modalities Start: 07/16/18 17:18 Freq: Status: Active Protocol: Document 08/06/18 10:30 RCC (Rec: 08/06/18 13:12 RCC [email or web address]) Hot Pack/Cold Pack Treatment Cold Pack Location right shoulder Patient Position Hooklying Treatment Duration (minutes) 10 Patient Tolerance Good PT-OP-T Assessment and Plan Start: 07/16/18 17:18 Freq: Status: Active Protocol: Document 08/20/18 15:15 DCW (Rec: 08/20/18 15:59 DCW [id number]) Physical Therapy Assessment Goals Four Impairment Impaired shoulder ROM Mcfp Goal (LTG) Patient will reach functional ROM without discomfort LTG Duration 6 wks Three Impairment Apley's functional test: Unable [employer] Office Supervisor Goal (LTG) Apleys ER/ABD C7 Appleys IR/ADD T9 LTG Duration 7 wks Two Impairment Quick Dash score of 56 [facility] [employer] Office Supervisor Goal (LTG) Patient will have Quick Dash score of les tna 30 LTG Duration 5 wks One Impairment NO HEP in place Mcfp Goal (LTG) Indep in HEP and will comply to recommended pre-cautions LTG Duration 3 wk Assessment Summary Assessment Pt tolerated addition of resistance exercises very well , had no complaints of pain or difficulty with new activities. Physical Therapy Plan Frequency and Duration Frequency of Treatment 1x/Week Duration of Treatment 8 wks Plan of Care Start Date 07/16/18 Plan of Care End Date 09/10/18 Next Visit Focus/Plan Next Note Type Treatment Note Next Visit Plan gentle/light strength training , cont to advance ROM
--- NOTE | 2018-09-12 14:23 | PT.OPDS ---
Current Diagnoses Complete rotator cuff tear or rupture of right shoulder, not specified as traumatic (08/20/18) Provider Visit Care Team Role Provider Type Walter Laboy MD Primary Care Provider Physician Specialty: Internal Medicine Address: [address] [place] [address], [id number] Email: Benny Beth MD Attending Provider Physician Specialty: Orthopedic Surgery Address: [address] [place] [address], [id number] Email: [email or web address] Visit Number Visit Number 6 Discharge Summary PT-OP-B Current Condition Start: 07/16/18 17:18 Freq: Status: Active Protocol: Document 07/16/18 17:21 EA (Rec: 07/16/18 17:37 EA [id number]) Current Condition History of Current Condition Onset Date s/p right rotator cuff repair (supraspinatus) 06/24/18 Current Complaints right shoulder pain and stiffness History of Current Condition Patient is s/p right RTC repair 06/24/18 due to sports injury last September/2017. 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 He reports sometimes in January/2018 where he re-injured it again. MRI reports full tear of supraspinatus prior to surgery . 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 Current Functional Impairments (Reported) Functional Limitations- ADL's Indep with restriction to right shoulder functional mobility Functional Limitations- Mobility/Gait indep Functional Limitations- Work/School Unable to work due to shoulder restriction Functional Limitations- Recreation/ Unable to participate in a Hobbies fire volunteer work due to right shoulder restriction PT-OP-C Subjective Start: 07/16/18 17:18 Freq: Status: Active Protocol: Document 09/12/18 14:21 RCC (Rec: 09/12/18 14:23 RCC [id number]) OP-PT Subjective Patient Comments Patient Comments pt canceled his remaining appointments, as he was back to work and doing his HEP. PT-OP-E Functional Tests Start: 07/16/18 17:18 Freq: Status: Active Protocol: Document 07/16/18 17:21 EA (Rec: 07/16/18 17:37 EA [id number]) Functional Tests Apley's Scratch Test Action 1- Left opposite shoulder Action 1- Right restricted Action 2- Left T2 Action 2- Right Restricted Action 3- Left T9 Action 3- Right Buttoks PT-OP-J Posture/Palpation/Skin Start: 07/16/18 17:18 Freq: Status: Active Protocol: Document 07/16/18 17:21 EA (Rec: 07/16/18 17:37 EA [id number]) Posture Evaluation Position Standing Evaluation View post/lat Head/C-Spine Posture C-Spine Flattened Forward Head Shoulder Posture (L) Rounded (R) Rounded (R) Elevated Comments Posture Comments Slight forward head, rounded shoulder with depressed shoulders Palpation Assessment Location One Palpation Location anterior and postshoulder Palpation Findings Muscle Guarding Tenderness PT-OP-K Range of Motion Start: 07/16/18 17:18 Freq: Status: Active Protocol: Document 07/16/18 17:20 EA (Rec: 07/17/18 12:52 EA [id number]) Shoulder Goniometric Range of Motion Shoulder Right Testing Position Standing Flexion 30 Extension 25 Abduction 30 Left Active Shoulder ROM WFL Yes Shoulder ROM Limitations Shoulder ROM Limitations Muscle Weakness Pain Comments shoulder post surgery restrictions Elbow/Forearm Range of Motion Elbow/Forearm Right Active Elbow/Forearm ROM WFL Yes PT-OP-M Strength Start: 07/16/18 17:18 Freq: Status: Active Protocol: Document 07/16/18 17:20 EA (Rec: 07/17/18 12:52 EA [id number]) Shoulder Strength Shoulder Manual Muscle Testing Right Reason Not Measured Orthopedic Precautions Left Reason Not Measured WFL Elbow/Forearm Strength Elbow and Forearm Manual Muscle Testing Left Reason Not Measured WFL Right Flexion (C6) 4- Good- Extension (C7) 4- Good- Pronation 4- Good- Supination 4- Good- Comments No properly tested due to pre- cautions PT-OP-T Assessment and Plan Start: 07/16/18 17:18 Freq: Status: Active Protocol: Document 09/12/18 14:21 RCC (Rec: 09/12/18 14:23 RCC [email or web address]) Physical Therapy Assessment Assessment Summary Assessment Pt requested d/c after 6 total physical therapy visits. Pt was not having any c/o pain with activities and was back to work at the time of d/c. Pt canceled his remaining appointments and was unable to obtain all objective measures for re-assessment prior to the request of d/c. Physical Therapy Plan Discharge Physical Therapy Discharge Reasons Patient Request
== END 2018-09-16 16:19 | disposition home or self-care (01) ==
LOC: PHYS 15:15
PROVIDERS: PCP Internal Medicine; Visit Provider Orthopaedic Surgery
DX: M75.121 Complete rotator cuff tear or rupture of right shoulder, not specified as traumatic (principal)
CPT/HCPCS: 97110; 97140; 97161

== ENCOUNTER → 2019-03-11 13:12 | Outpatient (CLI) | payer OTHER, SELFPAY ==
[2019-03-11 13:44] LABS: Hematocrit 44.6 % (41-53); Hemoglobin 15.3 g/dL (13.5-17.5); Mean Corpuscular HGB Conc 34.4 % (30-36); Mean Corpuscular Hemoglobin 31.7 PG (26-34); Mean Corpuscular Volume 92.2 fL (80-100); Platelet Count 302 X10^3/uL (150-400); Red Blood Cell Count 4.83 X10^6/uL (4.5-5.9); Red Cell Distribution Width 12.7 % (11.6-14.8)
[2019-03-11 14:20] LABS: Alanine Aminotransferase 24 IU/L (<50); Albumin 4.9 g/dL (3.5-5.0); Albumin Globulin Ratio 1.9 (1.0-2.8); Alkaline Phosphatase 51 U/L (38-126); Aspartate Aminotransferase 30 IU/L (17-59); BUN Creatinine Ratio 15.6 (6-22); Bilirubin Total 1.1 mg/dL (0.2-1.3); Blood Urea Nitrogen 14 mg/dL (9-20); Calcium 10.2 mg/dL (8.4-10.2); Carbon Dioxide 27 mmol/L (22-32); Chloride 102 mmol/L (98-107); Cholesterol 170 mg/dL (140-199); Estimated Glomerular Filt Rate > 60.0 mL/min (>60); Globulin 2.6 g/dL (1.7-4.1); Glucose 99 mg/dL (70-100); HDL Cholesterol 33 mg/dL (40-60); HEMOLYSIS < 15 (0-50); LDL Cholesterol Calculated 105 mg/dL (<100); Potassium 4.3 mmol/L (3.4-5.1); Sodium 140 mmol/L (137-145); Total Protein 7.5 g/dL (6.3-8.2); Triglycerides 160 mg/dL (35-150)
[2019-03-11 17:13] LABS: Free T4, Direct Thyroxine 0.74 ng/dL (0.78-2.19)
== END ==
PROVIDERS: PCP Nurse Practitioner Family; Visit Provider Nurse Practitioner Family
DX: Z00.00 Encounter for general adult medical examination without abnormal findings (principal); Z13.6 Encounter for screening for cardiovascular disorders; R53.83 Other fatigue
CPT/HCPCS: 36415; 80053; 80061; 84403; 84439; 84443; 85027

== ENCOUNTER → 2019-03-12 16:39 | Outpatient (CLI) | payer OTHER, SELFPAY ==
[2019-03-12 18:34] LABS: Follicle Stimulating Hormone 4.99 mIU/mL; Luteinizing Hormone 3.71 mIU/mL
== END ==
PROVIDERS: PCP Nurse Practitioner Family; Visit Provider Nurse Practitioner Family
DX: R79.89 Other specified abnormal findings of blood chemistry (principal)
CPT/HCPCS: 36415; 83001; 83002; 84403

== ENCOUNTER → 2019-05-01 13:48 | Outpatient (CLI) | payer BC, SELFPAY ==
[2019-05-01 16:45] LABS: Thyroid Stimulating Hormone 6.82 uIU/mL (0.47-4.68)
== END ==
PROVIDERS: PCP Nurse Practitioner Family; Visit Provider Nurse Practitioner Family
DX: E03.9 Hypothyroidism, unspecified (principal)
CPT/HCPCS: 36415; 84443

== ENCOUNTER → 2019-07-30 14:29 | Outpatient (CLI) | payer BC, SELFPAY ==
[2019-07-30 16:19] LABS: Thyroid Stimulating Hormone 5.62 uIU/mL (0.47-4.68)
== END ==
PROVIDERS: PCP Nurse Practitioner Family; Referring Provider Nurse Practitioner Family; Visit Provider Nurse Practitioner Family
DX: E03.9 Hypothyroidism, unspecified (principal)
CPT/HCPCS: 36415; 84443

== ENCOUNTER → 2019-07-31 14:42 | Outpatient (CLI) | payer BC, SELFPAY ==
--- NOTE | 2019-07-31 14:46 | DI.RAD.S_ITS ---
PROCEDURE: XR HAND LT MIN 3V INDICATIONS: left ring pain finger x3 weeks TECHNIQUE: 3 views of the hand(s) acquired. COMPARISON: None. FINDINGS: Bones: Chronic deformity of the distal radius. Also, no fracture Soft tissues: No suspicious soft tissue calcifications. IMPRESSION: No acute fracture identified. If the patient's pain or other symptoms persist, consider further evaluation with MRI Chronic deformity of the distal radius Dictated by: Rene Crane M.D. on 07/31/2019 at 16:09 Approved by: Rene Crane M.D. on 07/31/2019 at 16:11
== END ==
PROVIDERS: PCP Nurse Practitioner Family; Referring Provider Nurse Practitioner; Visit Provider Nurse Practitioner
DX: S66.912A Strain of unspecified muscle, fascia and tendon at wrist and hand level, left hand, initial encounter (principal); M79.645 Pain in left finger(s); M21.932 Unspecified acquired deformity of left forearm; X58.XXXA Exposure to other specified factors, initial encounter
CPT/HCPCS: 73130

== ENCOUNTER → 2019-11-03 15:24 | Outpatient (CLI) | payer BC, SELFPAY ==
[2019-11-03 17:08] LABS: Thyroid Stimulating Hormone 2.62 uIU/mL (0.47-4.68)
== END ==
PROVIDERS: PCP Nurse Practitioner Family; Referring Provider Nurse Practitioner Family; Visit Provider Nurse Practitioner Family
DX: E03.9 Hypothyroidism, unspecified (principal)
CPT/HCPCS: 36415; 84443

== ENCOUNTER → 2020-06-25 09:42 | Outpatient (CLI) | payer BC, SELFPAY ==
[2020-06-25 10:53] LABS: Add Manual Diff / Slide Review NO; Basophils Absolute Auto 0 /uL (0-100); Basophils Percent Auto 0.4 % (0-2); Eosinophils Absolute Auto 100 /uL (0-450); Eosinophils Percent Auto 1.3 % (2-4); Hemoglobin 15.1 g/dL (13.5-17.5); Lymphocytes Absolute Auto 1400 /uL (1100-4500); Lymphocytes Percent Auto 19.1 % (25-40); Mean Corpuscular HGB Conc 34.4 % (30-36); Mean Corpuscular Hemoglobin 32.2 PG (26-34); Mean Corpuscular Volume 93.8 fL (80-100); Monocytes Absolute Auto 700 /uL (0-900); Monocytes Percent Auto 9.2 % (3-14); Neutrophils Absolute Auto 5200 /uL (1500-7000); Platelet Count 271 X10^3/uL (150-400); Red Blood Cell Count 4.69 X10^6/uL (4.5-5.9); Red Cell Distribution Width 13.2 % (11.6-14.8); White Blood Cell Count 7.4 X10^3/uL (4.5-11.0)
[2020-06-25 11:12] LABS: Alanine Aminotransferase 30 IU/L (<50); Albumin 4.2 g/dL (3.5-5.0); Albumin Globulin Ratio 1.7 (1.0-2.8); Alkaline Phosphatase 52 U/L (38-126); Aspartate Aminotransferase 28 IU/L (17-59); Bilirubin Total 0.9 mg/dL (0.2-1.3); Blood Urea Nitrogen 15 mg/dL (9-20); Calcium 9.7 mg/dL (8.4-10.2); Carbon Dioxide 29 mmol/L (22-32); Chloride 105 mmol/L (98-107); Estimated Glomerular Filt Rate > 60.0 mL/min (>60); Globulin 2.5 g/dL (1.7-4.1); Glucose 99 mg/dL (70-100); HEMOLYSIS < 15 (0-50); Potassium 4.8 mmol/L (3.4-5.1); Sodium 140 mmol/L (137-145); Total Protein 6.7 g/dL (6.3-8.2)
[2020-06-27 21:07] LABS: Deamidated Gliadin Ab IgA 24 units (0-19); Deamidated Gliadin Ab IgG 70 units (0-19); Immunoglobulin A,Qn 256 mg/dL (90-386); t-Transglutaminase IgA 88 U/mL (0-3)
== END ==
PROVIDERS: PCP Nurse Practitioner Family; Referring Provider Physician Assistant; Visit Provider Physician Assistant
DX: Z01.812 Encounter for preprocedural laboratory examination (principal); R19.7 Diarrhea, unspecified
CPT/HCPCS: 36415; 80053; 82784; 83516; 85025

== ENCOUNTER → 2021-05-31 16:58 | Outpatient (CLI) | payer BC, SELFPAY ==
[2021-05-31 17:51] LABS: Add Manual Diff / Slide Review NO; Basophils Absolute Auto 100 /uL (0-100); Basophils Percent Auto 0.9 % (0-2); Eosinophils Absolute Auto 200 /uL (0-450); Eosinophils Percent Auto 2.5 % (2-4); Hematocrit 40.9 % (41-53); Hemoglobin 14.2 g/dL (13.5-17.5); Lymphocytes Absolute Auto 2300 /uL (1100-4500); Lymphocytes Percent Auto 31.4 % (25-40); Mean Corpuscular HGB Conc 34.6 % (30-36); Mean Corpuscular Hemoglobin 32.4 PG (26-34); Mean Corpuscular Volume 93.6 fL (80-100); Monocytes Absolute Auto 700 /uL (0-900); Monocytes Percent Auto 10.4 % (3-14); Neutrophils Absolute Auto 3900 /uL (1500-7000); Neutrophils Percent Auto 54.8 % (50-75); Platelet Count 251 X10^3/uL (150-400); Red Blood Cell Count 4.37 X10^6/uL (4.5-5.9); Red Cell Distribution Width 13.2 % (11.6-14.8); White Blood Cell Count 7.2 X10^3/uL (4.5-11.0)
[2021-05-31 17:55] LABS: Alanine Aminotransferase 33 IU/L (<50); Albumin 4.7 g/dL (3.5-5.0); Albumin Globulin Ratio 1.4 (1.0-2.8); Alkaline Phosphatase 62 U/L (38-126); Aspartate Aminotransferase 42 IU/L (17-59); BUN Creatinine Ratio 17.3 (6-22); Bilirubin Total 0.9 mg/dL (0.2-1.3); Blood Urea Nitrogen 18 mg/dL (9-20); C-Reactive Protein Quant < 0.5 mg/dL (<1.0); Calcium 9.1 mg/dL (8.4-10.2); Carbon Dioxide 23 mmol/L (22-32); Chloride 106 mmol/L (98-107); Estimated Glomerular Filt Rate > 60.0 mL/min (>60); Globulin 3.3 g/dL (1.7-4.1); Glucose 100 mg/dL (70-100); Sodium 137 mmol/L (137-145)
[2021-05-31 17:57] LABS: HEMOLYSIS 83 (0-50)
[2021-05-31 17:58] LABS: Potassium 4.6 mmol/L (3.4-5.1)
[2021-05-31 18:24] LABS: Thyroid Stimulating Hormone 4.77 uIU/mL (0.47-4.68)
[2021-06-01 04:59] LABS: Immunoglobulin A 255 mg/dL (90-386)
[2021-06-01 16:34] LABS: Tissue Transglutaminase IgA 21 U/mL (0-3)
[2021-06-07 17:24] LABS: Percent Free Testosterone 3.69 % (1.50-4.20); Testosterone Free 7.14 ng/dL (5.00-21.00); Testosterone Total 193.5 ng/dL (264.0-916.0)
== END ==
PROVIDERS: PCP Family Medicine; Referring Provider Family Medicine; Visit Provider Family Medicine
DX: K90.0 Celiac disease (principal); Z79.899 Other long term (current) drug therapy; E03.9 Hypothyroidism, unspecified
CPT/HCPCS: 36415; 80053; 82784; 83516; 84402; 84403; 84443; 85025; 86140

== ENCOUNTER → 2021-09-19 09:21 | Outpatient (CLI) | payer BC, SELFPAY ==
--- NOTE | 2021-09-19 | DI.RAD.S_ITS ---
PROCEDURE: FL SHOULDER INJECTION MR/CT RT INDICATIONS: RIGHT ROTATOR CUFF TEAR COMPARISON: [facility], CR, XR SHOULDER 2+ VIEWS RIGHT, 09/11/2021, 16:06. TECHNIQUE: The indications, alternatives, benefits, risks, and complications of the procedure were explained to the patient. Written informed consent was obtained and placed in the chart. The shoulder was examined fluoroscopically and a site for needle placement chosen for entry into the glenohumeral joint from an anterior approach. The skin was prepped and draped in a sterile fashion, and 1% lidocaine infiltrated from skin down to joint capsule. A spinal needle was inserted into the glenohumeral joint, and a small amount of iodinated contrast media injected to confirm intra-articular placement of the needle tip. This was followed by approximately 12 mL dilute solution of a gadolinium containing MR contrast agent. The needle was removed and a dressing was applied. The patient was given postprocedural instructions and sent to the MR suite for MR imaging. FINDINGS: A single fluoroscopic spot image demonstrates intra-articular location of injected iodinated contrast. IMPRESSION: Successful fluoroscopically guided administration of dilute Gadolinium solution into the shoulder joint for MR arthrogram. Dictated by: Stormy Hannah M.D. on 09/19/2021 at 10:15 Approved by: Stormy Hannah M.D. on 09/19/2021 at 10:16
--- NOTE | 2021-09-19 | DI.MRI.S_ITS ---
PROCEDURE: MR SHOULDER RT W CON INDICATIONS: RIGHT ROTATOR CUFF TEAR TECHNIQUE: After the administration of 12 mL of dilute intra-articular Gadolinium contrast, oblique coronal T1 and T2 spin echo with fat saturation, oblique sagittal T1 spin echo with and without fat saturation, oblique sagittal T2 fast spin echo with fat saturation, axial T1 spin echo with fat saturation through the shoulder. COMPARISON: None. FINDINGS: Image quality: Excellent. Rotator cuff: Postsurgical changes are noted from prior rotator cuff tendon repair. Moderate grade articular and bursal surface partial thickness tear involving distal supraspinatus at its insertion on the humeral head is seen extending to musculotendinous junction. Tendinosis and low-grade articular surface partial-thickness tear involving distal infraspinatus is seen. Distal subscapularis tendinosis is seen. No full-thickness rotator cuff tendon rupture. No significant rotator cuff muscle atrophy on sagittal images. Bones and bursae: Postsurgical changes are seen in greater tuberosity of humeral head. No bone marrow contusions or fractures. Moderate acromioclavicular joint osteoarthritic changes are seen with downward osteophyte formation depressing the musculotendinous junction of supraspinatus. No gross loose bodies. Capsule and soft tissues: Subtle signal abnormality and contour irregularity involving superior anterior labrum at 12 to 1 o'clock position is seen suggestive of subtle superior anterior labral tear. The glenohumeral ligaments appear intact. The long head of the biceps tendinosis and low-grade intrasubstance partial-thickness tear is seen. The rotator interval appears normal, without fibrosis. The coracohumeral ligament is of normal thickness. No intra-articular bodies. IMPRESSION: 1. Prior rotator cuff tendon repair with postsurgical changes. No fracture or dislocation. Moderate acromioclavicular joint osteoarthritis. 2. Tendinosis and moderate grade articular and bursal surface partial thickness tear involving distal supraspinatus extending to musculotendinous junction. Low-grade articular surface partial-thickness tear involving distal infraspinatus. Distal subscapularis tendinosis. No full-thickness rotator cuff tendon rupture. No significant muscle atrophy. 3. Suggestion of subtle superior anterior labral tear at 12 to 1 o'clock position. 4. Tendinosis and low-grade intrasubstance partial-thickness tear involving proximal intra-articular portion of long head of biceps. Dictated by: Bhavesh Guerrero M.D. on 09/19/2021 at 13:55 Approved by: Bhavesh Guerrero M.D. on 09/19/2021 at 14:22
== END ==
PROVIDERS: PCP Family Medicine; Referring Provider Orthopaedic Surgery; Visit Provider Orthopaedic Surgery
DX: M75.111 Incomplete rotator cuff tear or rupture of right shoulder, not specified as traumatic (principal); M19.011 Primary osteoarthritis, right shoulder; S46.111A Strain of muscle, fascia and tendon of long head of biceps, right arm, initial encounter; Z98.890 Other specified postprocedural states
CPT/HCPCS: 23350; 73222; 77002

== ENCOUNTER → 2022-06-09 09:47 | Outpatient (CLI) | payer BC, SELFPAY ==
[2022-06-09 10:01] LABS: Semen Sperm Prescence Post-Vas Absent (ABSENT)
== END ==
PROVIDERS: PCP Family Medicine; Referring Provider Specialist; Visit Provider Specialist
DX: Z98.52 Vasectomy status (principal)
CPT/HCPCS: 89321

== ENCOUNTER → 2022-07-28 08:34 | Outpatient (CLI) | payer BC, SELFPAY ==
[2022-07-28 10:15] LABS: Alanine Aminotransferase 59 IU/L (<50); Albumin 4.4 g/dL (3.5-5.0); Albumin Globulin Ratio 1.5 (1.0-2.8); Alkaline Phosphatase 58 U/L (38-126); Aspartate Aminotransferase 38 IU/L (17-59); Bilirubin Total 0.9 mg/dL (0.2-1.3); Blood Urea Nitrogen 18 mg/dL (9-20); Calcium 8.8 mg/dL (8.4-10.2); Carbon Dioxide 23 mmol/L (22-32); Chloride 105 mmol/L (98-107); Cholesterol 169 mg/dL (140-199); Estimated Glomerular Filt Rate > 60 mL/min (>60); Globulin 2.9 g/dL (1.7-4.1); Glucose 109 mg/dL (70-100); HDL Cholesterol 32 mg/dL (40-60); HEMOLYSIS 16 (0-50); LDL Cholesterol Calculated 95 mg/dL (<100); Potassium 4.1 mmol/L (3.4-5.1); Sodium 136 mmol/L (137-145); Total Protein 7.3 g/dL (6.3-8.2); Triglycerides 208 mg/dL (35-150)
[2022-07-28 10:17] LABS: Add Manual Diff / Slide Review NO; Basophils Absolute Auto 0 /uL (0-100); Basophils Percent Auto 0.6 % (0-2); Eosinophils Absolute Auto 100 /uL (0-450); Hemoglobin 15.4 g/dL (13.5-17.5); Lymphocytes Absolute Auto 2000 /uL (1100-4500); Lymphocytes Percent Auto 30.2 % (25-40); Mean Corpuscular HGB Conc 34.3 % (30-36); Mean Corpuscular Hemoglobin 32.7 PG (26-34); Mean Corpuscular Volume 95.3 fL (80-100); Monocytes Absolute Auto 700 /uL (0-900); Monocytes Percent Auto 10.7 % (3-14); Neutrophils Absolute Auto 3600 /uL (1500-7000); Neutrophils Percent Auto 56.5 % (50-75); Platelet Count 281 X10^3/uL (150-400); Red Blood Cell Count 4.73 X10^6/uL (4.5-5.9); Red Cell Distribution Width 13.1 % (11.6-14.8); White Blood Cell Count 6.5 X10^3/uL (4.5-11.0)
[2022-07-28 10:43] LABS: TSH w/ Reflex to FT4 3.98 uIU/mL (0.47-4.68)
== END ==
PROVIDERS: PCP Family Medicine; Referring Provider Family Medicine; Visit Provider Family Medicine
DX: Z00.00 Encounter for general adult medical examination without abnormal findings (principal)
CPT/HCPCS: 36415; 80053; 80061; 84443; 85025

== ENCOUNTER → 2024-04-07 16:50 | Outpatient (CLI) | payer OTHER, SELFPAY ==
[2024-04-07 17:41] LABS: Influenza A - CEPHEID Flu A NEGATIVE (NEGATIVE); Influenza B - CEPHEID Flu B NEGATIVE (NEGATIVE); Respiratory Syncytial Virus Negative (Negative)
[2024-04-07 17:47] LABS: COVID-19 CEPHEID 4-PLEX PCR Negative (Negative)
== END ==
PROVIDERS: PCP Family Medicine; Visit Provider Physician Assistant Surgical
DX: R05.1 Acute cough (principal)
CPT/HCPCS: 0241U; 87070

== ENCOUNTER → 2024-12-15 11:28 | Outpatient (CLI) | payer BC, SELFPAY ==
[2024-12-15 12:36] LABS: Free T4, Direct Thyroxine 1.02 ng/dL (0.78-2.19)
[2024-12-15 12:50] LABS: Thyroid Stimulating Hormone 4.92 uIU/mL (0.47-4.68)
== END ==
PROVIDERS: PCP Family Medicine; Referring Provider Family Medicine; Visit Provider Family Medicine
DX: E03.9 Hypothyroidism, unspecified (principal)
CPT/HCPCS: 36415; 84439; 84443